=== PATIENT | male | born 1985 | race Caucasian/White ===

== ENCOUNTER 2021-08-19 15:00 | Emergency (ER) | payer BC ==
--- NOTE | 2021-08-19 15:44 | CR ---
INDICATION: COVID positive. Increasing cough and shortness of breath. TECHNIQUE: Chest 1 view. COMPARISON: None. FINDINGS: Cardiovascular and mediastinum: Heart size and vasculature are normal in caliber and appearance. Lungs and pleural spaces: Lungs are clear. No sign of infiltrate or mass. No sign of pleural effusion. No pneumothorax. Bones and soft tissues: No significant findings. IMPRESSION: Negative chest. Lungs are clear. Dictated by Eran Ferrari MD @ 08/19/2021 3:44:30 PM (Electronically Signed)
== END 2021-08-19 16:05 | disposition home or self-care (01) ==
LOC: MW.ED 15:00
DX: U07.1 COVID-19 (principal)
CPT/HCPCS: 71045; 71045-26; 99284-25